=== PATIENT | male | born 1960 | race Caucasian/White ===

== ENCOUNTER 2016-09-04 09:13 | Emergency (ER) | payer OTHER | END 2016-09-04 11:05 | disposition home or self-care (01) | LOC: ER 09:13 | DX: M54.5 Low back pain (principal); G89.29 Other chronic pain; M51.36 Other intervertebral disc degeneration, lumbar region; F17.210 Nicotine dependence, cigarettes, uncomplicated; Z79.899 Other long term (current) drug therapy | CPT/HCPCS: 72100; 96372; 99283-25 ==